=== PATIENT | female | born 1995 | race Caucasian/White ===

== ENCOUNTER 2019-07-16 17:24 | Emergency (ER) | payer SELFPAY ==
[~2019-07-16] VITALS: Ht 167.6 cm; Wt 90.3 kg
[2019-07-16] MEDS ORDERED: IV NORMAL SALINE 1,000ML 1,000 ML IV ONE (17:45)
--- NOTE | 2019-07-16 18:07 | PHYS DOC ---
Past History Past Medical History: No Pertinent History (GERARD GHOSH DO) Past Surgical History: No Surgical History (GERARD GHOSH DO) Alcohol Use: None Drug Use: None (GERARD GHOSH DO) Adult General Chief Complaint Chief Complaint: VAGINAL BLEEDING HPI HPI 24-year-old female presents with vaginal bleeding. The patient believe she is 7 weeks . She had a positive test local clinic. She has had blee ding yesterday and more today. Today she had some clots. She is concerned about this. She really had an ultrasound that fluid gestational sac about 6 weeks. 8 days ago. The patient's had some mild abdominal cramping. She denies fever or chills. She denies dysuria or increased urinary frequency. (GERARD GHOSH DO) Review of Systems Review of Systems Constitutional: Denies fever or chills [] Eyes: Denies change in visual acuity, redness, or eye pain [] HENT: Denies nasal congestion or sore throat [] Respiratory: Denies cough or shortness of breath [] Cardiovascular: No additional information not addressed in HPI [] GI: Denies abdominal pain, nausea, vomiting, bloody stools or diarrhea [] : Vaginal bleeding[] Musculoskeletal: Denies back pain or joint pain [] Integument: Denies rash or skin lesions [] Neurologic: Denies headache, focal weakness or sensory changes [] Endocrine: Denies polyuria or polydipsia [] All other systems were reviewed and found to be within normal limits, except as documented in this note. (GERARD GHOSH DO) Current Medications Current Medications Current Medications Medications (Trade) Dose Ordered Sig/Kevin Start Time Stop Time Status Last Admin Dose Admin Sodium Chloride 1,000 ml @ 1,000 mls/hr 1X ONCE 07/16/19 17:45 07/16/19 18:44 (GERARD GHOSH DO) Allergies Allergies Allergies Coded Allergies Type Severity Reaction Last Updated Verified No Known Drug Allergies 07/16/19 No (GERARD GHOSH DO) Physical Exam Physical Exam Constitutional: Well developed, well nourished, no acute distress, non-toxic appearance. [] HENT: Normocephalic, atraumatic, bilateral external ears normal, oropharynx moist, no oral exudates, nose normal. [] Eyes: PERRLA, EOMI, conjunctiva normal, no discharge. [] Neck: Normal range of motion, no tenderness, supple, no stridor. [] Cardiovascular:Heart rate regular rhythm, no murmur [] Lungs & Thorax: Bilateral breath sounds clear to auscultation [] Abdomen: Bowel sounds normal, soft, no tenderness, no masses, no pulsatile masses. [] Skin: Warm, dry, no erythema, no rash. [] Back: No tenderness, no CVA tenderness. [] Extremities: No tenderness, no cyanosis, no clubbing, ROM intact, no edema. [] Neurologic: Alert and oriented X 3, normal motor function, normal sensory function, no focal deficits noted. [] Psychologic: Affect normal, judgement normal, mood tearful. [] (GERARD GHOSH DO) Current Patient Data Vital Signs Vital Signs Date Time Temp Pulse Resp B/P (MAP) Pulse Ox O2 Delivery O2 Flow Rate FiO2 07/16/19 17:35 98.0 90 16 99 Room Air (GERARD GHOSH DO) EKG EKG [] (GERARD GHOSH DO) Radiology/Procedures Radiology/Procedures [] (GERARD GHOSH DO) Course & Med Decision Making Course & Med Decision Making Pertinent Labs and Imaging studies reviewed. (See chart for details) The patient's ultrasound showed similar results to her or some for me days ago. No fetus was seen. This is according to the tech. Official read is pending. The respiratory workup is pending. I'm signing the patient out to Dr. Disla at 1808. [] (GERARD GHOSH DO) Dragon Disclaimer Dragon Disclaimer This electronic medical record was generated, in whole or in part, using a voice recognition dictation system. (GERARD GHOSH DO) Departure Departure: Impression: Primary Impression: Miscarriage, threatened, early Disposition: HOME, SELF-CARE Condition: STABLE Referrals: PCP,NO (PCP) Patient Instructions: Threatened Miscarriage, [id number] GERARD GHOSH DO Jul 16, 2019 18:07 ART ANN DO Jul 17, 2019 03:43
--- NOTE | 2019-07-16 18:07 | RAD ---
Obstetric ultrasound less than 14 weeks HISTORY: History of , bleeding COMPARISON: None available FINDINGS: The uterus measures 9.0 x 4.8 x 5.8 cm. LMP 05/05/2019. Clinical age 10 weeks and 2 days with estimated of delivery 02/09/2020. Ultrasound age 6 weeks and 2 days with estimated date of delivery by ultrasound 03/08/2020. Gestational age measures 1.49 cm corresponding to 6 weeks and 2 days. pole is not identified. The right and left ovaries could not be identified. IMPRESSION: 1. Intrauterine gestational sac is evident however no evidence of pole is identified. Differential includes very early , failed first trimester . Close interval follow-up examination in follow-up serial beta-hCG levels and ultrasound is recommended. Electronically signed by: Kayode Johnson MD (07/16/2019 6:04 PM) [id number]
[2019-07-16 18:30] LABS: BASO # 0.1 x10^3/uL (0.0-0.2); BASO % 0 % (0-3); EOS # 0.1 x10^3/uL (0.0-0.7); EOS % 1 % (0-3); HEMATOCRIT 42.3 % (36.0-47.0); HEMOGLOBIN 14.1 g/dL (12.0-15.5); LYMPH # 2.8 x10^3/uL (1.0-4.8); LYMPH % 25 % (24-48); MEAN CORPUSCULAR HEMOGLOBIN 29 pg (25-35); MEAN CORPUSCULAR HGB CONC 33 g/dL (31-37); MEAN CORPUSCULAR VOLUME 86 fL (79-100); MONO # 0.9 x10^3/uL (0.0-1.1); MONO % 8 % (0-9); NEUT # 7.4 x10^3uL (1.8-7.7); NEUT % 66 % (31-73); PLATELET COUNT 490 x10^3/uL (140-400); RED BLOOD COUNT 4.93 x10^6/uL (3.50-5.40); RED CELL DISTRIBUTION WIDTH 12.8 % (11.5-14.5); WHITE BLOOD COUNT 11.2 x10^3/uL (4.0-11.0)
[2019-07-16 18:37] LABS: BILIRUBIN,URINE NEG (NEG); CLARITY,URINE HAZY; COLOR,URINE AMBER; GLUCOSE,URINE NEG (NEG); NITRITE,URINE NEG (NEG); UROBILINOGEN,URINE 0.2 mg/dL (0.2 mg/dL); WBC,URINE RARE /HPF (0-4)
[2019-07-16 18:38] LABS: BACTERIA,URINE FEW /HPF (0-FEW); SQUAMOUS EPITHELIAL CELL,UR MOD /LPF
[2019-07-16 19:33] LABS: CALCIUM 9.1 mg/dL (8.5-10.1); CREATININE 0.6 mg/dL (0.6-1.0); GFR 122.8
[2019-07-16 19:40] LABS: ALBUMIN 3.8 g/dL (3.4-5.0); POTASSIUM 3.8 mmol/L (3.5-5.1); TOTAL BILIRUBIN 0.3 mg/dL (0.2-1.0); TOTAL PROTEIN 7.6 g/dL (6.4-8.2)
[2019-07-16 19:50] VITALS: BP 159/78
== END 2019-07-16 19:51 | disposition home or self-care (01) ==
LOC: ER 17:24
DX: O20.0 Threatened abortion (principal); Z3A.01 Less than 8 weeks gestation of pregnancy
CPT/HCPCS: 36415; 76801; 76817; 80053; 81001; 84702; 85025; 99285-25; J7030

== ENCOUNTER 2019-08-09 15:06 | Emergency (ER) | payer SELFPAY ==
[~2019-08-09] VITALS: Ht 167.6 cm; Wt 90.9 kg
[2019-08-09] MEDS ORDERED: IV NORMAL SALINE 1,000ML 1,000 ML IV ONE (15:30)
--- NOTE | 2019-08-09 15:31 | PHYS DOC ---
Past History Past Medical History: No Pertinent History Past Surgical History: No Surgical History Alcohol Use: None Drug Use: None Adult General Chief Complaint Chief Complaint: VAGINAL BLEEDING HPI HPI 24-year-old female presents with vaginal bleeding. The patient had a spontaneous miscarriage about 3 weeks ago. She was seen in this emergency room for threatened . She did have passage of clots and heavier bleeding couple of days after her visit. The patient has continued to have vaginal bleeding. She is concerned about the odor around her vagina and the continued bleeding at this time. She is concerned that she may have retained products. She does not have a primary care physician or an NETWORKS SOFTWARE CONSULTANT. She denies fever or chills. She's had some mild generalized cramps, but no severe pain. She denies any other symptoms. Review of Systems Review of Systems Constitutional: Denies fever or chills [] Eyes: Denies change in visual acuity, redness, or eye pain [] HENT: Denies nasal congestion or sore throat [] Respiratory: Denies cough or shortness of breath [] Cardiovascular: No additional information not addressed in HPI [] GI: Denies abdominal pain, nausea, vomiting, bloody stools or diarrhea [] : Vaginal bleeding[] Musculoskeletal: Denies back pain or joint pain [] Integument: Denies rash or skin lesions [] Neurologic: Denies headache, focal weakness or sensory changes [] Endocrine: Denies polyuria or polydipsia [] All other systems were reviewed and found to be within normal limits, except as documented in this note. Current Medications Current Medications Current Medications Medications (Trade) Dose Ordered Sig/[facility] Start Time Stop Time Status Last Admin Dose Admin Sodium Chloride 1,000 ml @ 1,000 mls/hr 1X ONCE 08/09/19 15:30 08/09/19 16:29 UNV Allergies Allergies Allergies Coded Allergies Type Severity Reaction Last Updated Verified No Known Drug Allergies 07/16/19 No Physical Exam Physical Exam Constitutional: Well developed, well nourished, no acute distress, non-toxic appearance. [] HENT: Normocephalic, atraumatic, bilateral external ears normal, oropharynx moist, no oral exudates, nose normal. [] Eyes: PERRLA, EOMI, conjunctiva normal, no discharge. [] Neck: Normal range of motion, no tenderness, supple, no stridor. [] Cardiovascular: Heart rate regular rhythm, no murmur [] Lungs & Thorax: Bilateral breath sounds clear to auscultation [] Abdomen: Bowel sounds normal, soft, no tenderness, no masses, no pulsatile masses. [] Skin: Warm, dry, no erythema, no rash. [] Back: No tenderness, no CVA tenderness. [] Extremities: No tenderness, no cyanosis, no clubbing, ROM intact, no edema. [] Neurologic: Alert and oriented X 3, normal motor function, normal sensory function, no focal deficits noted. [] Psychologic: Affect normal, judgement normal, mood normal. [] Current Patient Data Vital Signs Vital Signs Date Time Temp Pulse Resp B/P (MAP) Pulse Ox O2 Delivery O2 Flow Rate FiO2 08/09/19 15:19 97 18 145/105 (118) 100 EKG EKG [] Radiology/Procedures Radiology/Procedures [] Course & Med Decision Making Course & Med Decision Making Pertinent Labs and Imaging studies reviewed. (See chart for details) Patient's labs are unremarkable. Her urinalysis was suggestive of UTI. I treated her with 1 g Rocephin IV. I will discharge her on 5 days of Keflex 3 times a day. The patient's ultrasound does not show surgeon retained products. I spoke with the events and promotions assistant, Dr. Garcia, and he has advised outpatient follow-up. He believes she is on the tail end of her spontaneous . I explained this to the patient and she is okay with being discharged. She is stable for discharge at this time. [] Dragon Disclaimer Dragon Disclaimer This electronic medical record was generated, in whole or in part, using a voice recognition dictation system. Departure Departure: Impression: Primary Impression: Vaginal bleeding, abnormal Additional Impression: UTI (urinary tract infection) Disposition: HOME, SELF-CARE Condition: STABLE Referrals: PCP,NO (PCP) Patient Instructions: Miscarriage, [id number], Urinary Tract Infection, [id number] Scripts Cephalexin (KEFLEX) 500 Mg Capsule 1 CAP PO TID for UTI for 7 Days, #21 CAP 0 Refills Prov: GERARD GHOSH DO 08/09/19 Problem Qualifiers Additional Impression: UTI (urinary tract infection) Urinary tract infection type: acute cystitis Hematuria presence: with hematuria Qualified Codes: N30.01 - Acute cystitis with hematuria GERARD GHOSH DO Aug 09, 2019 15:31
[2019-08-09 15:48] LABS: BASO # 0.1 x10^3/uL (0.0-0.2); BASO % 1 % (0-3); EOS # 0.1 x10^3/uL (0.0-0.7); EOS % 1 % (0-3); HEMATOCRIT 38.7 % (36.0-47.0); HEMOGLOBIN 12.9 g/dL (12.0-15.5); LYMPH % 29 % (24-48); MEAN CORPUSCULAR HEMOGLOBIN 29 pg (25-35); MEAN CORPUSCULAR HGB CONC 33 g/dL (31-37); MEAN CORPUSCULAR VOLUME 87 fL (79-100); MONO # 0.9 x10^3/uL (0.0-1.1); MONO % 12 % (0-9); NEUT % 57 % (31-73); PLATELET COUNT 434 x10^3/uL (140-400); RED BLOOD COUNT 4.46 x10^6/uL (3.50-5.40); RED CELL DISTRIBUTION WIDTH 12.8 % (11.5-14.5)
[2019-08-09 16:02] LABS: BACTERIA,URINE FEW /HPF (0-FEW); BILIRUBIN,URINE NEG (NEG); CLARITY,URINE CLOUDY; COLOR,URINE YELLOW; GLUCOSE,URINE NEG (NEG); NITRITE,URINE NEG (NEG); SQUAMOUS EPITHELIAL CELL,UR OCC /LPF; UROBILINOGEN,URINE 0.2 mg/dL (0.2 mg/dL); WBC,URINE TNTC /HPF (0-4)
[2019-08-09 16:37] LABS: CALCIUM 7.9 mg/dL (8.5-10.1); CREATININE 0.7 mg/dL (0.6-1.0); GFR 102.8; POTASSIUM 3.3 mmol/L (3.5-5.1)
[2019-08-09 16:43] LABS: ALBUMIN 3.5 g/dL (3.4-5.0); ALBUMIN/GLOBULIN RATIO 1.2 (1.0-1.7); TOTAL BILIRUBIN 0.2 mg/dL (0.2-1.0); TOTAL PROTEIN 6.5 g/dL (6.4-8.2)
[2019-08-09] MEDS ORDERED: IV NORMAL SALINE 50ML 50 ML ONE (17:12)
[2019-08-09] MEDS ORDERED: cefTRIAXone SODIUM 1 GM VIAL ONE (17:12)
--- NOTE | 2019-08-09 17:40 | RAD ---
Pelvic ultrasound, transabdominal and transvaginal: Reason for examination: Rule out retained products of conception. Recent spontaneous . Bleeding for 3 weeks since spontaneous . Transabdominally, the uterus shows no gross abnormality. No abnormality seen in the bladder. Adnexa are not optimally visualized. Transvaginally, the uterus measures 8.2 x 3.9 x 4.5 cm in greatest dimension. Endometrium in the uterine fundus is not thickened. There is however a thickened area of heterogeneous decreased echogenicity in the area of the cervix measuring 4.7 x 2.3 x 2.6 cm in greatest dimension which shows some peripheral vascularity on the inferior edge. This could reflect retained products. Right ovary measures 2.4 x 1.9 x 2.8 cm in greatest dimension and shows good vascular flow and a few small follicles. Left ovary measures 3.2 x 1.7 x 2.7 cm in greatest dimension and shows normal vascularity and a few small follicles. No free fluid is present. IMPRESSION: Thickened area of heterogeneous decreased echogenicity in the region of the cervix measuring 4.7 x 2.3 x 2.6 cm in greatest dimensions with some peripheral vascularity. Retained products cannot be excluded. Electronically signed by: Nelli Painter MD (08/09/2019 5:38 PM) [id number]
[2019-08-09] MEDS ORDERED: CEPH-264 PO (18:12)
== END 2019-08-09 18:56 | disposition home or self-care (01) ==
LOC: ER 15:06
DX: O03.6 Delayed or excessive hemorrhage following complete or unspecified spontaneous abortion (principal); N30.01 Acute cystitis with hematuria
CPT/HCPCS: 36415; 76830; 76856; 80053; 81001; 84702; 85025; 87086; 96365; 99285; J0696; Q0111; J7030

== ENCOUNTER 2021-02-11 14:12 | Emergency (ER) | payer SELFPAY ==
[~2021-02-11] VITALS: Ht 160 cm; Wt 93.4 kg
[~2021-02-11 14:12] MED LIST: CEPH-264 PO
--- NOTE | 2021-02-11 14:51 | PHYS DOC ---
Past History Past Medical History: No Pertinent History Past Surgical History: Tonsillectomy Alcohol Use: None Drug Use: None Social History Narrative: none for 1 month General Adult EDM: Chief Complaint: VAGINAL BLEEDING HPI: HPI: Patient is a 25-year-old female who presents to the ER for vaginal bleeding and . Patient reports that her last menstrual period is 6-16-21. She states that she is approximately 5 weeks . She had a positive test on January 15. G2, P0 with history of miscarriage. Patient reports that for the last week she has had light pink vaginal bleeding. It is non the bleeding to saturate pads she is just concerned that it has been going on for so long. There are no clots. Patient denies sexual intercourse prior to bleeding. Patient is reporting intermittent abdominal cramping that is mild. Patient denies any current pain, nausea, vomiting, fevers, urinary symptoms. Patient has not establish care with an OB. Review of Systems: Review of Systems: 14 body systems of the review of systems have been reviewed. See HPI for pertinent positive and negative responses, otherwise all other systems are nega tive, nonpertinent or noncontributory Allergies: Allergies: Allergies Coded Allergies Type Severity Reaction Last Updated Verified No Known Drug Allergies 02/11/21 No Physical Exam: PE: Constitutional: Well developed, well nourished, no acute distress, non-toxic appearance. [] HENT: Normocephalic, atraumatic Eyes: PERRL, conjunctiva normal, no discharge. [] Neck: Normal range of motion, no stridor Cardiovascular:Heart rate regular rhythm, no murmur [] Lungs & Thorax: Bilateral breath sounds clear to auscultation [] Abdomen: Bowel sounds normal, soft, no tenderness, no masses, no pulsatile masses. [] Skin: Warm, dry, no erythema, no rash. [] Back: Normal range of motion, no CVA tenderness. [] Extremities: No tenderness, no cyanosis, no clubbing, ROM intact, no edema. [] Neurologic: Alert and oriented X 3, normal motor function, normal sensory function, no focal deficits noted. [] Psychologic: Affect normal, judgement normal, mood normal. [] Current Patient Data: Labs: Laboratory Tests Test 02/11/21 14:47 02/11/21 15:01 02/11/21 15:22 02/11/21 15:33 Maternal Serum HCG Beta Subunit 52204 mIU/mL White Blood Count 9.9 x10^3/uL Red Blood Count 4.53 x10^6/uL Hemoglobin 13.1 g/dL Hematocrit 39.7 % Mean Corpuscular Volume 88 fL Mean Corpuscular Hemoglobin 29 pg Mean Corpuscular Hemoglobin Concent 33 g/dL Red Cell Distribution Width 13.1 % Platelet Count 456 x10^3/uL Neutrophils (%) (Auto) 64 % Lymphocytes (%) (Auto) 29 % Monocytes (%) (Auto) 6 % Eosinophils (%) (Auto) 1 % Basophils (%) (Auto) 1 % Neutrophils # (Auto) 6.3 x10^3uL Lymphocytes # (Auto) 2.8 x10^3/uL Monocytes # (Auto) 0.6 x10^3/uL Eosinophils # (Auto) 0.1 x10^3/uL Basophils # (Auto) 0.1 x10^3/uL Sodium Level 138 mmol/L Potassium Level 3.2 mmol/L Chloride Level 103 mmol/L Carbon Dioxide Level 25 mmol/L Anion Gap 10 Blood Urea Nitrogen 7 mg/dL Creatinine 0.5 mg/dL Estimated GFR (Cockcroft-Gault) 150.3 BUN/Creatinine Ratio 14 Glucose Level 88 mg/dL Calcium Level 8.9 mg/dL Total Bilirubin 0.6 mg/dL Aspartate Amino Transf (AST/SGOT) 8 U/L Alanine Aminotransferase (ALT/SGPT) 21 U/L Alkaline Phosphatase 73 U/L Total Protein 7.3 g/dL Albumin 3.9 g/dL Albumin/Globulin Ratio 1.1 Urine Collection Type Void Urine Color Yellow Urine Clarity Clear Urine pH 5.0 Urine Specific [place] >=1.030 Urine Protein Neg Urine Glucose (UA) Neg mg/dL Urine Ketones (Stick) 15 mg/dL Urine Blood Mod Urine Nitrite Neg Urine Bilirubin Neg Urine Urobilinogen Dipstick 0.2 mg/dL Urine Leukocyte Esterase Neg Urine RBC 3-5 /HPF Urine WBC Rare /HPF Urine Squamous Epithelial Cells Few /LPF Urine Bacteria 0 /HPF Bedside Urine HCG, Qualitative hcg positive Current Medications Medications (Trade) Dose Ordered Sig/Kevin Route PRN Reason Start Time Stop Time Status Last Admin Dose Admin Sodium Chloride 1,000 ml @ 1,000 mls/hr 1X ONCE IV 02/11/21 15:00 02/11/21 15:59 DC 02/11/21 15:18 Vital Signs: Vital Signs Date Time Temp Pulse Resp B/P (MAP) Pulse Ox O2 Delivery O2 Flow Rate FiO2 02/11/21 14:22 98.2 83 20 128/93 100 Room Air EKG: EKG: [] Radiology/Procedures: Radiology/Procedures: REASON: vaginal bleeding in PROCEDURE: OB <14 WKS W/TV INDICATION: Reason: vaginal bleeding in / Spl. Instructions: / History: COMPARISON: None. TECHNIQUE: Grayscale and color ultrasound images of the pelvis. Transabdominal and transvaginal images obtained. Transvaginal images were needed to better visualize structures that were limited on transabdominal imaging. FINDINGS: Uterus: 82 x 58 x 41 mm. Intrauterine gestational sac is seen. Too early in gestation to adequately assess placenta. pole not seen. Yolk sac is seen. Small fluid within the cervix. Estimated Gestational Age: 8 weeks 0 days Right Ovary: 29 x 28 x 14 mm. Left Ovary: 36 x 23 x 22 mm. Vascular flow identified to bilateral ovaries. IMPRESSION: * Intrauterine gestational sac is identified with a yolk sac seen but a definite pole is not seen at this time. This could be too early to visualize and would consider obtaining a follow-up to ensure appropriate development of a pole. Electronically signed by: Refugio Simon MD (02/11/2021 4:17 PM) [id number] DICTATED AND SIGNED BY: REFUGIO SIMON MD DATE: 02/11/21 1610 CC: KIRILL GUILLEN MD; LAKSHMI ESCALANTE WAREHOUSING TECHNICIAN ~MTH0 0 [] Heart Score: C/O Chest Pain: No Risk Factors: Risk Factors: DM, Current or recent (<one month) smoker, HTN, HLP, family history of CAD, obesity. Risk Scores: Score 0 - 3: 2.5% MACE over next 6 weeks - Discharge Home Score 4 - 6: 20.3% MACE over next 6 weeks - Admit for Clinical Observation Score 7 - 10: 72.7% MACE over next 6 weeks - Early Invasive Strategies Course & Med Decision Making: Course & Med Decision Making Pertinent Labs and Imaging studies reviewed. (See chart for details) Patient is a 25-year-old female being seen in the ER for vaginal bleeding and . Work-up in the ER consisted of blood work, UA, ultrasound. CBC unremarkable. Patient was noted to have hypokalemia. Potassium was replaced in the ER. Patient advised to increase potassium rich foods at home. Beta-hCG is appropriate for patient's . Ultrasound showed gestational sac but no pole could not be visualized, radiologist reported that it is possible that the pole cannot be visualized because it is too early in . Patient advised to follow-up with her OB. Patient's vital signs are stable. I discussed with patient all findings and diagnostic testing as well as the need to follow-up with PCP for further evaluation and treatment or return to the ER if any new or worsening symptoms. Strict return precautions were also discussed at length. Patient voiced understanding and agreement with the plan. Patient is hemodynamically stable at the time of disposition. Dragon Disclaimer: Dragon Disclaimer: This electronic medical record was generated, in whole or in part, using a voice recognition dictation system. Departure Departure: Impression: Primary Impression: Vaginal bleeding during Disposition: HOME / SELF CARE / HOMELESS Condition: GOOD Referrals: PCP,NO (PCP) Patient Instructions: ABCs of , Vaginal Bleeding During , First Trimester Additional Instructions: You were seen in the ER for vaginal bleeding during . Your beta hCG levels were consistent with your last menstrual period. You were noted to have a low potassium and this was replaced in the ER. Please ensure that you are eating potassium rich foods at home likely leafy vegetables. An ultrasound was performed in the ER and it showed a gestational sac but no pole could not be visualized, it is possible that the pole is not visualized because it is too early in your . You need to establish care with an OB and follow-up with them as soon as possible. Please return to the ER if you develop worsening of your vaginal bleeding, severe abdominal pain, severe back pain, uncontrollable nausea vomiting, fevers. EMERGENCY DEPARTMENT GENERAL DISCHARGE INSTRUCTIONS Thank you for coming to [facility] (ED) today and trusting us with you care. We trust that you had a positivie experience in our Emergency Department. If you wish to speak to the department management, you may call the director at [phone]. YOUR FOLLOW UP INSTRUCTIONS ARE FOLLOWS: 1. Do you have a private Doctor? If you do not have a private doctor, please ask for a resource list of physicians or clinics that may be able to assist you with follow up care. 2. The Emergency Physician has interpreted your x-rays. The X-Ray specialist will also review them. If there is a change in the findings, you will be notified in 48 hours when at all possible. 3. A lab test or culture has been done, your results will be reviewed and you will be notified if you need a change in treatment. ADDITIONAL INSTRUCTIONS AND INFORMATION: 1. Your care today has been supervised by a physician who is specially trained in emergency care. Many problems require more than one evaluation for a complete diagnosis and treatment. We recommend that you schedule your follow up appointment as recommended to ensure complete treatment of you illness or injury. If you are unable to obtain follow up care and continue to have a problem, or if your condition worsens, we recommend that you return to the ED. 2. We are not able to safely determine your condition over the phone nor are we able to give sound medical advice over the phone. For these safety reasons, if you call for medical advice we will ask you to come to the ED for further evaluation. 3. If you have any questions regarding these discharge instructions please call the ED at [phone]. SAFETY INFORMATION: In the interest of safety, wellness, and injury prevention; we encourage you to wear your sealbelt, if you smoke; quite smoking, and we encourage family to use a protective helmet for bicycling and other sporting events that present an increased risk for head injury. IF YOUR SYMPTOMS WORSEN OR NEW SYMPTOMS DEVELOP, OR YOU HAVE CONCERNS ABOUT YOUR CONDITION; OR IF YOUR CONDITION WORSENS WHILE YOU ARE WAITING FOR YOUR FOLLOW UP APPOINTMENT; EITHER CONTACT YOUR PRIMARY CARE DOCTOR, THE PHYSICIAN WHOSE NAME AND NUMBER YOU WERE GIVEN, OR RETURN TO THE ED IMMEDIATELY. LAKSHMI ESCALANTE APRN Feb 11, 2021 14:51
[2021-02-11] MEDS ORDERED: IV NORMAL SALINE 1,000ML 1,000 ML IV ONE (15:00)
[2021-02-11 15:30] LABS: BASO # 0.1 x10^3/uL (0.0-0.2); BASO % 1 % (0-3); EOS # 0.1 x10^3/uL (0.0-0.7); EOS % 1 % (0-3); HEMATOCRIT 39.7 % (36.0-47.0); HEMOGLOBIN 13.1 g/dL (12.0-15.5); LYMPH # 2.8 x10^3/uL (1.0-4.8); LYMPH % 29 % (24-48); MEAN CORPUSCULAR HEMOGLOBIN 29 pg (25-35); MEAN CORPUSCULAR HGB CONC 33 g/dL (31-37); MEAN CORPUSCULAR VOLUME 88 fL (79-100); MONO # 0.6 x10^3/uL (0.0-1.1); MONO % 6 % (0-9); NEUT # 6.3 x10^3uL (1.8-7.7); NEUT % 64 % (31-73); PLATELET COUNT 456 x10^3/uL (140-400); RED BLOOD COUNT 4.53 x10^6/uL (3.50-5.40); RED CELL DISTRIBUTION WIDTH 13.1 % (11.5-14.5); WHITE BLOOD COUNT 9.9 x10^3/uL (4.0-11.0)
[2021-02-11 15:33] LABS: CALCIUM 8.9 mg/dL (8.5-10.1); CREATININE 0.5 mg/dL (0.6-1.0); GFR 150.3; POTASSIUM 3.2 mmol/L (3.5-5.1)
[2021-02-11 15:39] LABS: ALBUMIN 3.9 g/dL (3.4-5.0); ALBUMIN/GLOBULIN RATIO 1.1 (1.0-1.7); TOTAL BILIRUBIN 0.6 mg/dL (0.2-1.0); TOTAL PROTEIN 7.3 g/dL (6.4-8.2)
--- NOTE | 2021-02-11 16:19 | RAD ---
INDICATION: Reason: vaginal bleeding in / Spl. Instructions: / History: COMPARISON: None. TECHNIQUE: Grayscale and color ultrasound images of the pelvis. Transabdominal and transvaginal imag es obtained. Transvaginal images were needed to better visualize structures that were limited on tra nsabdominal imaging. FINDINGS: Uterus: 82 x 58 x 41 mm. Intrauterine gestational sac is seen. Too early in gestation to adequately assess placenta. pole not seen. Yolk sac is seen. Small fluid within the cervix. Estimated Gestational Age: 8 weeks 0 days Right Ovary: 29 x 28 x 14 mm. Left Ovary: 36 x 23 x 22 mm. Vascular flow identified to bilateral ovaries. IMPRESSION: * Intrauterine gestational sac is identified with a yolk sac seen but a definite pole is not seen at this time. This could be too early to visualize and would consider obtaining a follow-up to e nsure appropriate development of a pole. Electronically signed by: Oseas Simon MD (02/11/2021 4:17 PM) [id number]
[2021-02-11 16:21] LABS: BILIRUBIN,URINE NEG (NEG); CLARITY,URINE CLEAR; COLOR,URINE YELLOW; GLUCOSE,URINE NEG (NEG)
[2021-02-11 16:22] LABS: NITRITE,URINE NEG (NEG); UROBILINOGEN,URINE 0.2 mg/dL (0.2 mg/dL)
[2021-02-11 16:23] LABS: BACTERIA,URINE 0 /HPF (0-FEW); SQUAMOUS EPITHELIAL CELL,UR FEW /LPF; WBC,URINE RARE /HPF (0-4)
[2021-02-11] MEDS ORDERED: POTASSIUM CHLORIDE 20 MEQ TABLET.ER. PO ONE (16:30)
[2021-02-11 16:55] VITALS: BP 124/75
== END 2021-02-11 16:57 | disposition home or self-care (01) ==
LOC: ER 14:12
DX: O20.8 Other hemorrhage in early pregnancy (principal); Z3A.08 8 weeks gestation of pregnancy
CPT/HCPCS: 36415; 76801; 76817; 80053; 81001; 81025; 84702; 85025; 86900; 86901; 96360; 96361; 99284; J7030

== ENCOUNTER 2021-03-03 19:31 | Emergency (ER) | payer OTHER ==
[~2021-03-03] VITALS: Ht 160 cm; Wt 94.2 kg
[2021-03-03 20:22] VITALS: BP 128/62
--- NOTE | 2021-03-03 20:39 | PHYS DOC ---
Past History Past Medical History: No Pertinent History (ARIELLE PEDRO APRN) Past Surgical History: No Surgical History (ARIELLE PEDRO APRN) Alcohol Use: Rarely Drug Use: None (ARIELLE PEDRO APRN) Adult General Chief Complaint Chief Complaint: VAGINAL BLEEDING HPI HPI Patient is a 25 old female patient who presents with vaginal bleeding and . Patient reports she is a G2, P0, reports she is approximately 9 weeks gestation, and 5 days ago she started to have some lower abdominal pain with some vaginal bleeding. States she has some sharp abdominal pain which had started, has continued the last couple days. States she has had some tissue passing, and has had some cramping. Reports her vaginal bleeding is similar to what she would have during her menstrual cycle at this time. States she had an ultrasound approximately 5 weeks gestation, which is found the exact however there was no pole identified at that time. States she has not been able to follow-up with [facility] as of yet, she had just gotten approved to do that. She has similar course of events are seen 1 year ago, which led to a miscarriage. She believes she is having another miscarriage again at this time. Denies any nausea, vomiting, diarrhea, denies any additional place other than some vaginal bleeding and lower abdominal cramping. Denies any vaginal discharge (ARIELLE PEDRO APRN) Review of Systems Review of Systems Constitutional: Denies fever or chills [] Respiratory: Denies cough or shortness of breath [] Cardiovascular: No additional information not addressed in HPI [] GI: Denies abdominal pain, nausea, vomiting, bloody stools or diarrhea [] : Denies dysuria or hematuria [] complains of vaginal bleeding, passing vaginal clots Musculoskeletal: Denies back pain or joint pain [] Integument: Denies rash or skin lesions [] Neurologic: Denies headache, focal weakness or sensory changes [] Endocrine: Denies polyuria or polydipsia [] All other systems were reviewed and found to be within normal limits, except as documented in this note. (ARIELLE PEDRO APRN) Allergies Allergies Allergies Coded Allergies Type Severity Reaction Last Updated Verified No Known Drug Allergies 02/11/21 No (ARIELLE PEDRO APRN) Physical Exam Physical Exam Constitutional: Well developed, well nourished, no acute distress, non-toxic appearance. [] Cardiovascular:Heart rate regular rhythm, no murmur [] Lungs & Thorax: Bilateral breath sounds clear to auscultation [] Abdomen: Bowel sounds normal, soft, no tenderness, no masses, no pulsatile masses. [] Skin: Warm, dry, no erythema, no rash. [] Back: No tenderness, no CVA tenderness. [] Extremities: No tenderness, no cyanosis, no clubbing, ROM intact, no edema. [] Neurologic: Alert and oriented X 3, normal motor function, normal sensory function, no focal deficits noted. [] Psychologic: Affect normal, judgement normal, mood normal. [] (ARIELLE PEDRO APRN) Current Patient Data Vital Signs Vital Signs Date Time Temp Pulse Resp B/P (MAP) Pulse Ox O2 Delivery O2 Flow Rate FiO2 03/03/21 20:22 98.1 95 18 128/62 99 Room Air Lab Results Laboratory Tests Test 03/03/21 20:22 POC Urine HCG, Qualitative hcg positive (Negative) (ARIELLE PEDRO APRN) EKG EKG [] (ARIELLE PEDRO APRN) Radiology/Procedures Radiology/Procedures [] (ARIELLE PEDRO APRN) Impressions: Transvaginal OB ultrasound HISTORY: Vaginal bleeding and Transvaginal sonographic examination of the was performed and multiple static images were obtained. FINDINGS: February 11, 2021. FINDINGS: The endometrium measures 5.7 mm in thickness. There is no gestational sac. The ovaries appear normal with normal blood flow. IMPRESSION: No evidence of consistent with complete miscarriage. Electronically signed by: Jun Zimmerman III, MD (03/03/2021 10:37 PM) [facility] DICTATED AND SIGNED BY: JUN ZIMMERMAN III, MD DATE: 03/03/212233 CC: KIRILL GUILLEN MD; ARIELLE PEDRO APRN ~MTH0 0 (GERARD GHOSH DO) Heart Score C/O Chest Pain: N/A Risk Factors: Risk Factors: DM, Current or recent (<one month) smoker, HTN, HLP, family history of CAD, obesity. Risk Scores: Risk Factors: DM, Current or recent (<one month) smoker, HTN, HLP, family history of CAD, obesity. (ARIELLE PEDRO APRN) Course & Med Decision Making Course & Med Decision Making Pertinent Labs and Imaging studies reviewed. (See chart for details) [] (ARIELLE PEDRO APRN) Course & Med Decision Making There is no evidence of via ultrasound. The patient's hCG is 42. I advised that the patient follow-up with OB or her primary physician to follow this to 0. She is stable for discharge at this time. (GERARD GHOSH DO) Dragon Disclaimer Dragon Disclaimer This electronic medical record was generated, in whole or in part, using a voice recognition dictation system. (ARIELLE PEDRO APRN) Attending Co-Sign The patient was seen and interviewed as well as examined at the bedside. The chart was reviewed. The case was discussed. Agree with the plan of care. (GERARD GHOSH DO) Departure Departure: Impression: Primary Impression: Miscarriage Disposition: 01 HOME / SELF CARE / HOMELESS Condition: STABLE Referrals: KIRILL GUILLEN MD (PCP) Patient Instructions: Miscarriage, [id number] ARIELLE PEDRO APRN Mar 03, 2021 20:39 GERARD GHOSH DO Mar 03, 2021 22:45
[2021-03-03 21:07] LABS: CALCIUM 8.4 mg/dL (8.5-10.1); GFR 67.6
[2021-03-03 21:13] LABS: BASO % 0 % (0-3); EOS # 0.1 x10^3/uL (0.0-0.7); EOS % 1 % (0-3); HEMATOCRIT 37.9 % (36.0-47.0); HEMOGLOBIN 12.6 g/dL (12.0-15.5); LYMPH # 3.3 x10^3/uL (1.0-4.8); LYMPH % 29 % (24-48); MEAN CORPUSCULAR HEMOGLOBIN 29 pg (25-35); MEAN CORPUSCULAR HGB CONC 33 g/dL (31-37); MEAN CORPUSCULAR VOLUME 87 fL (79-100); MONO # 0.8 x10^3/uL (0.0-1.1); MONO % 7 % (0-9); NEUT # 7.2 x10^3uL (1.8-7.7); NEUT % 63 % (31-73); PLATELET COUNT 506 x10^3/uL (140-400); RED BLOOD COUNT 4.34 x10^6/uL (3.50-5.40); RED CELL DISTRIBUTION WIDTH 12.7 % (11.5-14.5); WHITE BLOOD COUNT 11.4 x10^3/uL (4.0-11.0)
--- NOTE | 2021-03-03 22:39 | RAD ---
Transvaginal OB ultrasound HISTORY: Vaginal bleeding and Transvaginal sonographic examination of the was performed and multiple static images were o btained. FINDINGS: February 11, 2021. FINDINGS: The endometrium measures 5.7 mm in thickness. There is no gestational sac. The ovaries appear normal with normal blood flow. IMPRESSION: No evidence of consistent with complete miscarriage. Electronically signed by: Cameron Aguilar III, MD (03/03/2021 10:37 PM) [facility]
== END 2021-03-03 23:15 | disposition home or self-care (01) ==
LOC: ER 19:31
DX: O03.9 Complete or unspecified spontaneous abortion without complication (principal); Z3A.09 9 weeks gestation of pregnancy
CPT/HCPCS: 36415; 76801; 80048; 81025; 84702; 85025; 99284-25